=== PATIENT | female | born 1990 | race Two or more races ===

== ENCOUNTER → 2020-02-24 | Outpatient (CLI) | payer OTHER | END | disposition home or self-care (01) | LOC: PRENATAL 08:00 | PROVIDERS: ATTEND Obstetrics & Gynecology Maternal & Fetal Medicine | DX: Z36.89 Encounter for other specified antenatal screening (principal); O36.80X1 Pregnancy with inconclusive fetal viability, fetus 1; Z3A.14 14 weeks gestation of pregnancy ==

== ENCOUNTER → 2020-04-06 | Outpatient (CLI) | payer OTHER | END | disposition home or self-care (01) | LOC: PRENATAL 08:00 | PROVIDERS: ATTEND Obstetrics & Gynecology Maternal & Fetal Medicine | DX: O35.0XX1 Maternal care for (suspected) central nervous system malformation in fetus, fetus 1 (principal); O35.3XX1 Maternal care for (suspected) damage to fetus from viral disease in mother, fetus 1; O98.512 Other viral diseases complicating pregnancy, second trimester; Z36.89 Encounter for other specified antenatal screening; Z3A.20 20 weeks gestation of pregnancy ==

== ENCOUNTER 2020-05-21 23:32 | Emergency (ER) | payer OTHER ==
[~2020-05-21] VITALS: Ht 160 cm; Wt 65.8 kg
[2020-05-22] MEDS ORDERED: PRENA1 TRUE CO1 EACH (00:10)
[2020-05-22] MEDS ORDERED: CEFUROXIME500 MG PO (05:09)
== END 2020-05-22 05:39 | disposition home or self-care (01) ==
LOC: ER 23:32
DX: R00.2 Palpitations (principal); N39.0 Urinary tract infection, site not specified

== ENCOUNTER → 2020-06-09 | Emergency (ER) | payer OTHER ==
[~2020-06-09] VITALS: Ht 160 cm; Wt 72.6 kg
[~2020-06-09] MED LIST: CEFUROXIME500 MG PO; PRENA1 TRUE CO1 EACH
== END | disposition left against medical advice (07) ==
LOC: ER 18:15
DX: O26.893 Other specified pregnancy related conditions, third trimester (principal); G44.89 Other headache syndrome; Z3A.29 29 weeks gestation of pregnancy

== ENCOUNTER → 2020-06-23 | Outpatient (CLI) | payer OTHER | END | disposition home or self-care (01) | LOC: PRENATAL 13:29 | PROVIDERS: ATTEND Obstetrics & Gynecology Maternal & Fetal Medicine | DX: O26.843 Uterine size-date discrepancy, third trimester (principal); Z36.89 Encounter for other specified antenatal screening; Z3A.32 32 weeks gestation of pregnancy ==

== ENCOUNTER 2020-08-11 14:00 | Inpatient (IN) | payer OTHER ==
[~2020-08-11] VITALS: Ht 160 cm; Wt 78.5 kg
[2020-08-22] MEDS ORDERED: INTEGRA CAPSUL1 EACH PO (14:48)
[2020-08-22] MEDS ORDERED: CLEOCIN HCL300 MG PO (14:52)
== END 2020-08-22 14:58 | disposition home or self-care (01) | DRG 806 ==
LOC: OB/GYN 08-19 07:18 → LDR 08-19 07:18 → OB/GYN 08-20 01:02 → LDR 08-25 14:00
PROVIDERS: ADMIT Student in an Organized Health Care Education/Training Program; ATTEND Student in an Organized Health Care Education/Training Program
PROC: 10D17Z9 Manual Extraction of Products of Conception, Retained, Via Natural or Artificial Opening (ICD-10-PCS; 2020-08-19)
PROC: 0KQM0ZZ Repair Perineum Muscle, Open Approach (ICD-10-PCS; 2020-08-19)
PROC: 0W8NXZZ Division of Female Perineum, External Approach (ICD-10-PCS; 2020-08-19)
PROC: 10907ZC Drainage of Amniotic Fluid, Therapeutic from Products of Conception, Via Natural or Artificial Opening (ICD-10-PCS; 2020-08-19)
PROC: 3E033VJ Introduction of Other Hormone into Peripheral Vein, Percutaneous Approach (ICD-10-PCS; 2020-08-19)
PROC: 4A1HXFZ Monitoring of Products of Conception, Cardiac Rhythm, External Approach (ICD-10-PCS; 2020-08-19)
PROC: 10E0XZZ Delivery of Products of Conception, External Approach (ICD-10-PCS; principal; 2020-08-19 22:15)
DX: O70.1 Second degree perineal laceration during delivery (principal); O72.0 Third-stage hemorrhage; Z37.0 Single live birth; Z3A.39 39 weeks gestation of pregnancy; Z20.822 Contact with and (suspected) exposure to COVID-19